=== PATIENT | female | born 1950 | race Caucasian/White ===

== ENCOUNTER 2021-04-07 11:19 | Inpatient (IN) | payer OTHER ==
[~2021-04-07] VITALS: Ht 157.5 cm; Wt 44.9 kg
[2021-04-07 12:04] LABS: BASOPHILS % (AUTO) 0.2 % (0.0-2.0); HEMATOCRIT 39 % (33-45); HEMOGLOBIN 13.7 g/dL (11.5-14.8); LYMPHOCYTES # (AUTO) 2.7 K/uL (0.8-4.8); LYMPHOCYTES % (AUTO) 28.3 % (20.0-44.0); MEAN CORPUSCULAR HGB CONC 35 g/dl (31.0-36.0); MEAN CORPUSCULAR VOLUME 88 fL (82-100); MONOCYTES # (AUTO) 0.8 K/uL (0.1-1.30); MONOCYTES % (AUTO) 8.8 % (2.0-12.0); NEUTROPHILS # (AUTO) 5.9 K/uL (1.8-8.9); NEUTROPHILS % (AUTO) 61.7 % (43.0-81.0); PLATELET COUNT (AUTO) 292 K/uL (150-450); RED BLOOD CELL COUNT(AUTO) 4.47 MIL/uL (4.0-5.2); WHITE BLOOD COUNT (AUTO) 9.5 K/uL (4.3-11.0)
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
--- NOTE | 2021-04-07 12:19 | NUR ---
PT ON BEDPAN
[2021-04-07 12:20] LABS: ACETAMINOPHEN < 10 ug/ml (10-30); ALANINE AMINOTRANSFERASE 44 U/L (12-78); ALBUMIN 3.7 g/dL (3.4-5.0); ALCOHOL, BLOOD < 3 mg/dL (0-0); ALKALINE PHOSPHATASE 62 U/L (46-116); ASPARTATE AMINOTRANSFERASE 31 U/L (15-37); BILIRUBIN,TOTAL 0.7 mg/dL (0.2-1.0); CALCIUM, SERUM 9.1 mg/dL (8.5-10.1); CARBON DIOXIDE 28 mmol/L (21-32); CHLORIDE 110 mmol/L (98-107); CREATININE 0.8 mg/dL (0.6-1.3); GLUCOSE 140 mg/dL (74-106); SODIUM SERUM 150 mmol/L (136-145); TOTAL PROTEIN, SERUM 7.2 g/dL (6.4-8.2); UREA NITROGEN, BLOOD 21 mg/dL (7-18)
--- NOTE | 2021-04-07 12:25 | NUR ---
MADE AWARE OF POTASSIUM 2.8. AWAITIN GFURTHER ORDERED
[2021-04-07] MEDS ORDERED: CLON0.5T4 PO (12:26)
[2021-04-07] MEDS ORDERED: HYDR25TA4 PO (12:26)
[2021-04-07] MEDS ORDERED: MIRT7.5T10 PO (12:26)
[2021-04-07] MEDS ORDERED: HYDR-3976 MT (12:26)
[2021-04-07] MEDS ORDERED: POTASSIUM CL. PREMIX PERIPHER. 200 ML ONE (13:12)
[2021-04-07] MEDS: POTASSIUM CL. PREMIX PERIPHER. 50 ML IV SCH ×4 (13:19→17:24)
--- NOTE | 2021-04-07 13:20 | NUR ---
dR. JUAN NAYAK AT BEDSIDE.
--- NOTE | 2021-04-07 13:22 | NUR ---
IS AWARE OF BP 195/85. NO NEW ORDERS RECIEVED.
[2021-04-07] MEDS ORDERED: ONDANSETRON HCL/PF 4 MG/2 ML VIAL IVP PRN (13:30)
[2021-04-07] MEDS ORDERED: HYDROCODONE/APAP 5/325MG TABLET PO PRN (13:30)
[2021-04-07] MEDS ORDERED: TEMAZEPAM 15 MG CAPSULE PO PRN (13:30)
[2021-04-07] MEDS ORDERED: LORAZEPAM 1 MG TABLET PO PRN (13:30)
[2021-04-07] MEDS ORDERED: MAG HYDROX/AL HYDROX/SIMETH 30 ML UDC PO PRN (13:30)
[2021-04-07] MEDS ORDERED: ACETAMINOPHEN 325 MG TABLET PO PRN (13:30)
[2021-04-07] MEDS ORDERED: Z GUARD REMEDY 2 OZ OINT TP PRN (13:30)
[2021-04-07] MEDS ORDERED: MAGNESIUM HYDROXIDE 30 ML UDC PO PRN (13:30)
[2021-04-07] MEDS ORDERED: IV NS 0.9% 500 ML BAG IV ONE (14:00)
--- NOTE | 2021-04-07 14:13 | NUR ---
DR. JUAN NAYAK MADE AWARE OF BP 192/87. VERBAL ORDER RECEIVED TO GIVE HYDRALAZINE 10MG IV X 1 DOSE ONLY. NOTED AND CARRIED OUT
[2021-04-07] MEDS ORDERED: hydrALAZINE HCL IV 20 MG VIAL ONE (14:15)
--- NOTE | 2021-04-07 14:25 | NUR ---
PT IS STILL UNABLE TO URINATE AT THIS TIME. MD IS MADE AWARE. ORDER FOR FLUID RECEIVED.
[2021-04-07] MEDS ORDERED: hydrALAZINE HCL IV 20 MG VIAL IV ONE (14:30)
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
--- NOTE | 2021-04-07 17:42 | NUR ---
BED 101
--- NOTE | 2021-04-07 17:55 | NUR ---
PT'S BAND SAW MARKER WANT TO SIGN OUT CRATING AND MOVING ESTIMATOR AMA. PT DOES WANT TO STAY IN THE HOSPITAL TO BE TREATED. PT'S BAND SAW MARKER WAS ESCORTED OUT BY SECURITY.
--- NOTE | 2021-04-07 18:36 | NUR ---
REPORT WILL BE RECEIVED AFTER SHIFT.
--- NOTE | 2021-04-07 19:30 | NUR ---
REPORT GIVEN TO JAMIR PAYNE FOR SUYAPA
--- NOTE | 2021-04-07 19:44 | NUR ---
PT TRANSPORTED TO UNIT ON GURPORTER WITH EMT AND RN AR BEDSIDE W/ ACLS PROTOCOL. NAD NOTED DURING TRANSPORT.
[2021-04-07 19:45] VITALS: BP 121/76
--- NOTE | 2021-04-07 19:45 | NUR ---
LIBRARY CIRCULATION CLERKROOFER VINYL COATING NOTE PT TRANSPORTED VIA GURNEY TO UNIT AT THIS TIME. PT ADMITTED TO TELE UNDER JUAN NAYAK SUSTAINABLE DESIGN COORDINATOR FOR ADMITTING DIAGNOSIS OF HYPOKALEMIA AND HYPERNATREMIA. A/O X3, ABLE TO MAKE NEEDS KNOWN. PT IS STABLE ON ROOM AIR. NO SOB OR S/S OF RESPIRATORY DISTRESS NOTED. PT ON EXTERNAL COLLISION WORKER READING SR AT 74 BPM. NO C/O PAIN OR DISCOMFORT AT THIS TIME. IV ACCESS IN RFA #20. PT ORIENTED TO STAFF, ROOM, AND UNIT. SAFETY PRECAUTIONS MAINTAINED. BED IN LOWEST LOCKED POSITION, HOB ELEVATED, SIDE RAILS UP X2. CALL LIGHT AND TABLE WITHIN REACH. WILL CONTINUE TO MONITOR.
[2021-04-07] MEDS: MIRTAZAPINE 15 MG TABLET PO SCH (22:05)
[2021-04-07] MEDS: IV 1/2NS 1000 ML 1,000 ML IV PRN (22:33)
--- NOTE | 2021-04-08 03:00 | NUR ---
RN NOTE AT 0245, BED ALARM FROM ROOM 120 WAS HEARD. ELMER LOPEZ RN AND SHASHI RICKETTS CNA RAN TO FIND PT ON THE FLOOR NEXT TO BED. ASSISTED PT BACK TO BED. NO INJURIES AND NO BLEEDING NOTED. PT ABLE TO MOVE ALL EXTREMITIES WITHOUT ANY PAIN. PT STILL APPEARED AGITATED AND STATED THAT SHE "MISSES HER MOM." EDUCATED PT ON SAFETY AND FALL PRECAUTIONS. INFORMED JONATHAN HELLER DNP AND OBTAINED ORDER FOR BILATERAL SOFT WRIST RESTRAINTS. ORDER READ BACK AND CARRIED OUT.
--- NOTE | 2021-04-08 05:40 | NUR ---
RN NOTE INFORMED JONATHAN HELLER DNP THAT PT IS STILL RESTLESS, ANXIOUS, YELLING AND SCREAMING AT STAFF. RECEIVED ORDER TO ADMINISTER HALDOL 5 MG IM ONE TIME. ORDER READ BACK AND CARRIED OUT. WILL CONTINUE TO MONITOR PT.
--- NOTE | 2021-04-08 06:50 | NUR ---
QUALITY ASSURANCE SUPERVISOR TRIM CLOSING NOTE PT IS AWAKE IN BED. A/O X1, CONFUSED AND AGITATED. PT IS STABLE ON ROOM AIR. NO SOB OR S/S OF RESPIRATORY DISTRESS NOTED. PT ON EXTERNAL BARK PEELER READING SVT AT 150. NO C/O PAIN OR DISCOMFORT AT THIS TIME. IV ACCESS IS INTACT, PATENT, AND FLUSHING WELL. BILATERAL SOFT WRIST RESTRAINTS NOTED FOR PT ATTEMPTING TO GET OUT OF BED. ALL NEEDS HAVE BEEN MET. SAFETY PRECAUTIONS MAINTAINED. BED IN LOWEST LOCKED POSITION, HOB ELEVATED, SIDE RAILS UP X2. CALL LIGHT AND TABLE WITHIN REACH. WILL ENDORSE TO ONCOMING NURSE FOR SUYAPA.
[2021-04-08] MEDS ORDERED: HALOPERIDOL LACTATE INJ 5 MG/ML VIAL IM ONE (07:00)
--- NOTE | 2021-04-08 07:22 | NUR ---
RN NOTES PATIENT RECEIVED IN BED, ALERT AND ORIENTED X1-2. PATIENT ON ROOM AIR, WITH NO SIGNS OF SOB AT THIS TIME, WITH EVEN NON-LABORED BREATHING. BILATERAL SOFT WRIST RESTRAINTS, WITH ADEQUATE SKIN CIRCULATION, AND 2 FINGER BREATHS PRESENT. IV ACCESS INTACT AND PATENT. SKIN WARM AND DRY TO TOUCH. PATIENT DENIES ANY PAIN OR DISCOMFORT AT THIS TIME. SAFETY PRECAUTIONS IMPLEMENTED WITH BED LOCKED, BED ALARM, BILATERAL SIDE RAILS UP, BED IN THE LOWEST POSITION, AND CALL LIGHT WITHIN EASY REACH. WILL CONTINUE TO MONITOR PATIENT.
[2021-04-08 08:00] VITALS: BP 149/69
[2021-04-08] MEDS: ENSURE ENLIVE CHOC 237 ML CAN PO SCH ×2 (08:54→16:31)
[2021-04-08] MEDS: PANTOPRAZOLE 40 MG TABLET.DR PO SCH (08:54)
[2021-04-08 09:58] LABS: BASOPHILS # (AUTO) 0.1 K/uL (0.0-0.2); BASOPHILS % (AUTO) 0.4 % (0.0-2.0); HEMATOCRIT 34 % (33-45); HEMOGLOBIN 11.8 g/dL (11.5-14.8); LYMPHOCYTES # (AUTO) 1.1 K/uL (0.8-4.8); MEAN CORPUSCULAR HGB CONC 35 g/dl (31.0-36.0); MEAN CORPUSCULAR VOLUME 89 fL (82-100); MONOCYTES # (AUTO) 0.8 K/uL (0.1-1.30); MONOCYTES % (AUTO) 4.5 % (2.0-12.0); NEUTROPHILS # (AUTO) 15.6 K/uL (1.8-8.9); NEUTROPHILS % (AUTO) 89.1 % (43.0-81.0); PLATELET COUNT (AUTO) 225 K/uL (150-450); RED BLOOD CELL COUNT(AUTO) 3.83 MIL/uL (4.0-5.2); WHITE BLOOD COUNT (AUTO) 17.6 K/uL (4.3-11.0)
[2021-04-08 10:20] LABS: THYROID STIMULATING HORMONE 0.861 uIU/mL (0.358-3.74)
[2021-04-08 10:27] LABS: CALCIUM, SERUM 8.2 mg/dL (8.5-10.1); CREATININE 0.9 mg/dL (0.6-1.3); MAGNESIUM 1.7 mg/dL (1.8-2.4); PHOSPHORUS 2.6 mg/dL (2.5-4.9)
--- NOTE | 2021-04-08 10:37 | NUR ---
RN NOTES FAXED FACE SHEET TO [facility] FOR CONSULT. WILL CONTINUE TO MONITOR PATIENT.
[2021-04-08 12:00] VITALS: BP 142/88
[2021-04-08] MEDS ORDERED: LORAZEPAM 1 MG TABLET PO PRN (12:00)
[2021-04-08] MEDS: POTASSIUM CHLORIDE 20 MEQ TAB.PRT.SR PO SCH ×2 (12:26→13:48)
[2021-04-08] MEDS: OLANZAPINE 2.5 MG TABLET PO SCH ×2 (12:27→16:30)
[2021-04-08] MEDS: Magnesium 1GM/D5W 100ML PREMIX 100 ML IV SCH ×2 (12:27→13:47)
--- NOTE | 2021-04-08 13:12 | NUR ---
SS consult: SS Consult requested for Hx. of Conservator needed and contact information. Per EMR and previous SS assessment, the pt. is unable to engage in meaningful conversation. Per EMR the pt. was BIB , Tejnider Bush who the pt. has been residing with at [address] [place] [address]. [address] [facility] [id number] for the past 4 weeks. However, no phone number provided. Per facesheet, pt. has a daughter, Luz Elena Robles however, no phone number is available. GINA called the pt.'s nurse, Darcie and discussed above stated information. Darcie stated there are no phone numbers jad for conservator, or daughter. Per Darcie, she will notify SW if any of these parties call for pt and get their contact information. Noted. SW will be available as needed. GINA called the public guardians office [phone] and spoke to the officer of the day, Angelina who stated that this pt. is not showing up on their system. Per Angelina, the pt. may have a private conservator or may be from a different county. GINA will follow up with family when contact information is available.
[2021-04-08 15:41] LABS: COLOR,URINE YELLOW (YELLOW)
[2021-04-08 15:42] LABS: BILIRUBIN,URINE NEGATIVE (NEGATIVE); LEUKOCYTE ESTERASE ,URINE 2+ (NEGATIVE); NITRITE, URINE POSITIVE (NEGATIVE); PROTEIN,URINE NEGATIVE (NEGATIVE); UGLUCOSE NEGATIVE (NEGATIVE); UROBILINOGEN,URINE 0.2 EU/dL (0.2)
[2021-04-08 15:55] LABS: BACTERIA,URINE 3+ /HPF (None Seen); RBC,URINE 51-80 /HPF (0-2); SQUAMOUS EPITHELIAL CELL,UR Few /HPF (None Seen); URINE AMORPHOUS URATE Many /HPF (None Seen); WBC,URINE TOO NUMEROUS TO COUN /HPF (0-3)
[2021-04-08 15:56] LABS: MUCUS,URINE Few /LPF (None Seen)
[2021-04-08 16:00] VITALS: BP 134/50
--- NOTE | 2021-04-08 18:40 | NUR ---
ENAMEL DIPPER NOTES PATIENT IN BED RESTING COMFORTABLY, ALERT AND ORIENTED 1-2. ON ROOM AIR WITH NO RESPIRATORY DISTRESS NOTED AT THIS TIME. PATIENT ON SENIOR NUCLEAR MEDICINE TECHNOLOGIST SR. BILATERAL SOFT WRIST RESTRAINTS IN PLACE WITH Q15 VISUAL CHECKS DONE, WITH ADEQUATE SKIN CIRCULATION. PATIENT DENIES ANY PAIN OR DISCOMFORT. MET ALL OF PATIENT'S NEEDS. SAFETY PRECAUTIONS IMPLEMENTED WITH BED LOCKED, BILATERAL SIDE RAILS UP, BED IN THE LOWEST POSITION, AND CALL LIGHT WITHIN EASY REACH. WILL ENDORSE PLAN OF CARE TO UPCOMING RN.
--- NOTE | 2021-04-08 19:10 | NUR ---
RN NOTE RECEIVE PATIENT IN BED RESTING ALERT ORIENTED X1-2 VERBALLY RESPONSIVE ON ROOM AIR O2:99% IV SITE IS ON RIGHT FOREARM ON IV HYDRATION NS 0.45% 75CC/HR INCONTINENT TO BOWEL/BLADDER SAFETY MEASURE IMPLEMENT BED IN LOW POSITION AND LOCKED BED ALARM IS ON, BILATERAL SOFT RESTRAIN IN PLACE WILL CHECK EVERY 2 HOURS FOR CIRCULATION CONTINUE TO MONITOR.
[2021-04-08 20:00] VITALS: BP 125/65
[2021-04-08] MEDS: MIRTAZAPINE 15 MG TABLET PO SCH (21:48)
[2021-04-09] VITALS: BP 180/129
[2021-04-09] MEDS: CLONIDINE HCL 0.1 MG TABLET PO PRN (01:38)
--- NOTE | 2021-04-09 01:42 | NUR ---
RN NOTE BP 180/[address] CHIN RECEIVED ORDER CLONIDINE 0.1 MG PRN EVERY 6 HOURS IF SBP ABOVE 150 NOTED AND CARRIED OUT.
[2021-04-09] MEDS: IV 1/2NS 1000 ML 1,000 ML IV PRN ×2 (02:18→15:35)
--- NOTE | 2021-04-09 03:00 | NUR ---
RN NOTE BP IS NOW 150/64 CONTINUE TO MONITOR.
--- NOTE | 2021-04-09 03:24 | NUR ---
Rn NOTE RIGHT HAND IV SITE IS INFILTRATED REMOVED AND STARTED A NEW IV LINE ON LEFT WRIST G#22 INTACT PATENT WITH GOOD BLOOD RETURN CONTINUE TO MONITOR.
[2021-04-09 04:00] VITALS: BP 150/64
--- NOTE | 2021-04-09 06:41 | NUR ---
RN NOTE PATIENT REMAINS ON ALERT ORIENTED X1-2 VERBALLY RESPONSIVE ON ROOM AIR O2:98% NO SOB NOT ACUTE DISTRESS NOTED,IV SITE IS ON LEFT WRIST INTACT PATENT ON IV HYDRATION NS 0.45% 75CC/HR ALL DUE MEDS GIVEN KEPT CLEAN AND DRY ALL THE TIME,KEPT COMFORTABLE ALL NEEDS MET ENDORSE NEXT COMING SHIFT FOR CONTINUATION OF CARE.
[2021-04-09 07:19] LABS: BASOPHILS % (AUTO) 0.2 % (0.0-2.0); EOSINOPHILS % (AUTO) 1.4 % (0.0-6.0); HEMATOCRIT 35 % (33-45); HEMOGLOBIN 12.1 g/dL (11.5-14.8); LYMPHOCYTES # (AUTO) 2.7 K/uL (0.8-4.8); LYMPHOCYTES % (AUTO) 21.1 % (20.0-44.0); MEAN CORPUSCULAR HGB CONC 35 g/dl (31.0-36.0); MEAN CORPUSCULAR VOLUME 89 fL (82-100); MONOCYTES # (AUTO) 0.9 K/uL (0.1-1.30); MONOCYTES % (AUTO) 6.8 % (2.0-12.0); NEUTROPHILS # (AUTO) 9.2 K/uL (1.8-8.9); NEUTROPHILS % (AUTO) 70.5 % (43.0-81.0); PLATELET COUNT (AUTO) 219 K/uL (150-450); RED BLOOD CELL COUNT(AUTO) 3.94 MIL/uL (4.0-5.2)
--- NOTE | 2021-04-09 07:25 | NUR ---
LENS CLEANER OPENING NOTE PATIENT ALERT AND ORIENTED X 1 IN BED RESTING COMFORTABLY. PATIENT IS ON ROOM AIR WITH NO SIGNS OF SOB NOTED, WITH EVEN NON-LABORED BREATHING. ON REGIONAL CRA. PATIENT DENIES ANY PAIN OR DISCOMFORT. PATIENT WITH SOFT WRIST RESTRAINTS FOR SAFETY. SAFETY PRECAUTIONS IMPLEMENTED WITH BED LOCKED, BILATERAL SIDE RAILS UP, BED IN THE LOWEST POSITION, AND CALL LIGHT WITHIN EASY REACH. WILL CONTINUE TO MONITOR PATIENT FOR CONTINUITY OF CARE.
[2021-04-09 07:41] LABS: CALCIUM, SERUM 7.7 mg/dL (8.5-10.1); CREATININE 0.6 mg/dL (0.6-1.3)
[2021-04-09 07:52] LABS: POTASSIUM 2.4 mmol/L (3.5-5.1)
[2021-04-09 08:00] VITALS: BP 159/77
[2021-04-09] MEDS: ENSURE ENLIVE CHOC 237 ML CAN PO SCH ×2 (08:00→17:00)
--- NOTE | 2021-04-09 08:15 | NUR ---
RN NOTE RECEIVED A CALL FROM DECEMBER OF LABORATORY REGARDING POTASSIUM RESULT OF 2.4. DR. JUAREZ NOTIFIED WITH NO NEW ORDER AT THIS TIME. NO SIGNS AND SYMPTOMS OF HYPOKALEMIA NOTED AT THIS TIME. WILL CONTINUE TO MONITOR PATIENT.
[2021-04-09] MEDS: OLANZAPINE 2.5 MG TABLET PO SCH ×2 (08:28→18:22)
[2021-04-09] MEDS: PANTOPRAZOLE 40 MG TABLET.DR PO SCH (08:28)
[2021-04-09] MEDS: POTASSIUM CL. PREMIX PERIPHER. 50 ML IV SCH ×6 (09:50→15:58)
--- NOTE | 2021-04-09 11:06 | NUR ---
STONEWORK SUPERVISOR OPENING NOTE PATIENT ALERT AND ORIENTED X 1 IN BED RESTING COMFORTABLY. PATIENT IS ON ROOM AIR WITH NO SIGNS OF SOB NOTED, WITH EVEN NON-LABORED BREATHING. ON GROUNDS MAINTENANCE MANAGER. PATIENT DENIES ANY PAIN OR DISCOMFORT. PATIENT WITH SOFT WRIST RESTRAINTS FOR SAFETY. SAFETY PRECAUTIONS IMPLEMENTED WITH BED LOCKED, BILATERAL SIDE RAILS UP, BED IN THE LOWEST POSITION, AND CALL LIGHT WITHIN EASY REACH. WILL CONTINUE TO MONITOR PATIENT FOR CONTINUITY OF CARE. Addendum: 04/09/21 at 1111 by ADITYA CHERY RN OPENING NOTE - PLS DISREGARD
[2021-04-09 12:00] VITALS: BP 159/77
--- NOTE | 2021-04-09 12:25 | NUR ---
Point of contact pending: GINA called and spoke to the pt.'s nurse, Winifred to discuss if any family has called for his pt. Winifred stated that a neighbor, Annamarie called and stated she would be dropping off the pt.'s cellphone. Winiferd stated he does not have Annamarie's cellphone number but will attempt to gather this information when Annamarie arrives or if she call back. GINA will await for Annamarie's number.
[2021-04-09 16:00] VITALS: BP 136/87
--- NOTE | 2021-04-09 19:00 | NUR ---
INSOLE TACK PULLER HAND CLOSING NOTE PATIENT ALERT AND ORIENTED X 1 IN BED RESTING COMFORTABLY. PATIENT IS ON ROOM AIR WITH NO SIGNS OF SOB NOTED, WITH EVEN NON-LABORED BREATHING. ON TIPPLE TENDER. PATIENT DENIES ANY PAIN OR DISCOMFORT. PATIENT WITH SOFT WRIST RESTRAINTS FOR SAFETY. SAFETY PRECAUTIONS IMPLEMENTED WITH BED LOCKED, BILATERAL SIDE RAILS UP, BED IN THE LOWEST POSITION, AND CALL LIGHT WITHIN EASY REACH. WILL ENDORSE TO NEXT SHIFT FOR CONTINUITY OF CARE.
--- NOTE | 2021-04-09 19:48 | NUR ---
RN OPENING NOTE RECEIVED PT IN BED, ALERT AND ORIENTED X 1, VERY CONFUSED. PATIENT IS ON ROOM AIR WITH NO SOB OR RESP DISTRESS NOTED. ON ADMINISTRATION VICE PRESIDENT SR 80'S. PATIENT DENIES ANY PAIN OR DISCOMFORT. PATIENT WITH BILATERAL SOFT WRIST RESTRAINTS FOR SAFETY R/T REMOVING LINES AND RESTLESSNESS, REMOVED TO ASSESS CIRCULATION, SKIN AND PROVIDE ADL'S. (L) WRIST 22G RUNNING 1/2 NS @ 75ML/HR. SAFETY PRECAUTIONS IMPLEMENTED WITH BED LOCKED, BED ALARM ON, SIDE RAILS UP X3, BED IN THE LOWEST POSITION, AND CALL LIGHT WITHIN EASY REACH. NO ACUTE DISTRESS NOTED AT THIS TIME.
[2021-04-09 20:00] VITALS: BP 159/77
[2021-04-09] MEDS: MIRTAZAPINE 15 MG TABLET PO SCH (22:10)
[2021-04-10] VITALS: BP 163/68
[2021-04-10 04:00] VITALS: BP 168/104
[2021-04-10] MEDS: IV 1/2NS 1000 ML 1,000 ML IV PRN (05:21)
--- NOTE | 2021-04-10 06:42 | NUR ---
RN CLOSING NOTE PT SLEEPING IN BED, ALERT AND ORIENTED X 1, VERY CONFUSED. PATIENT IS ON ROOM AIR WITH NO SOB OR RESP DISTRESS NOTED. ON FOOD CHECKER SR 80'S WITH PVC'S AND BBB. PATIENT DENIES ANY PAIN OR DISCOMFORT. PATIENT WITH BILATERAL SOFT WRIST RESTRAINTS FOR SAFETY R/T REMOVING LINES AND RESTLESSNESS, REMOVED TO ASSESS CIRCULATION, SKIN AND PROVIDE ADL'S PER UNIT PROTOCOL. (L) WRIST 22G RUNNING 1/2 NS @ 75ML/HR. ALL ORDERS FOLLOWED AND IMPLEMENTED THROUGHOUT SHIFT. PT. KEPT CLEAN AND DRY. SAFETY PRECAUTIONS IMPLEMENTED: BED LOCKED, BED ALARM ON, SIDE RAILS UP X3, BED IN THE LOWEST POSITION, AND CALL LIGHT WITHIN EASY REACH. NO ACUTE DISTRESS NOTED AT THIS TIME. WILL ENDORSE CONTINUITY OF CARE TO MORNING SHIFT RN
[2021-04-10 07:23] LABS: BASOPHILS % (AUTO) 0.3 % (0.0-2.0); EOSINOPHILS % (AUTO) 1.4 % (0.0-6.0); HEMATOCRIT 38 % (33-45); HEMOGLOBIN 13.2 g/dL (11.5-14.8); LYMPHOCYTES # (AUTO) 2.7 K/uL (0.8-4.8); LYMPHOCYTES % (AUTO) 24.7 % (20.0-44.0); MEAN CORPUSCULAR HGB CONC 35 g/dl (31.0-36.0); MEAN CORPUSCULAR VOLUME 89 fL (82-100); MONOCYTES # (AUTO) 0.7 K/uL (0.1-1.30); MONOCYTES % (AUTO) 6.5 % (2.0-12.0); NEUTROPHILS # (AUTO) 7.2 K/uL (1.8-8.9); NEUTROPHILS % (AUTO) 67.1 % (43.0-81.0); PLATELET COUNT (AUTO) 204 K/uL (150-450); RED BLOOD CELL COUNT(AUTO) 4.26 MIL/uL (4.0-5.2); WHITE BLOOD COUNT (AUTO) 10.8 K/uL (4.3-11.0)
--- NOTE | 2021-04-10 07:39 | NUR ---
RN OPENING NOTE PT AWAKE IN BED RESTING. A/O X1-2 AND CONFUSED. NO COMPLAINT OF PAIN OR NAUSEA PRESENT. ON RA WITH NO SOB OR RESPIRATORY DISTRESS PRESENT. ON WOOD SCRAP HANDLER. NO EDEMA PRESENT. PT IS ON BEDREST WITH DIAPER PRESENT. SKIN IS INTACT. FALL RISK WITH BED ALARM ON. SKIN IS INTACT. IV PRESENT ON L WRIST 22G AND FLUSHES WELL. 1/2 NS RUNNING AT 75 ML/HR. LABS AND ORDERS REVIEWED. SAFETY MEASURES IN PLACE. SIDE RAILS RAISED. BED LOWERED. CALL LIGHT WITHIN REACH. WILL CONTINUE TO MONITOR.
[2021-04-10 08:00] VITALS: BP 169/90
[2021-04-10 08:21] LABS: CALCIUM, SERUM 8.1 mg/dL (8.5-10.1); CREATININE 0.6 mg/dL (0.6-1.3); MAGNESIUM 1.7 mg/dL (1.8-2.4)
[2021-04-10 08:26] LABS: POTASSIUM 2.7 mmol/L (3.5-5.1)
[2021-04-10] MEDS: OLANZAPINE 2.5 MG TABLET PO SCH ×2 (08:32→17:02)
[2021-04-10] MEDS: ENSURE ENLIVE CHOC 237 ML CAN PO SCH ×3 (08:33→17:03)
[2021-04-10] MEDS: PANTOPRAZOLE 40 MG TABLET.DR PO SCH (08:33)
--- NOTE | 2021-04-10 08:39 | NUR ---
K level 2.7 notified to MIKA Alfaro waiting for returning call back
[2021-04-10] MEDS ORDERED: POTASSIUM CHLORIDE 20 MEQ TAB.PRT.SR PO ONE (09:00)
[2021-04-10] MEDS ORDERED: POTASSIUM CL. PREMIX PERIPHER. 50 ML IV SCH (09:00)
[2021-04-10] MEDS ORDERED: Magnesium 1GM/D5W 100ML PREMIX 100 ML IV SCH (09:00)
[2021-04-10] MEDS: Magnesium 1GM/D5W 100ML PREMIX 100 ML IV SCH ×2 (09:46→12:23)
[2021-04-10] MEDS: POTASSIUM CL. PREMIX PERIPHER. 50 ML IV SCH ×5 (09:46→19:19)
[2021-04-10 12:00] VITALS: BP 167/78
--- NOTE | 2021-04-10 12:45 | NUR ---
SS Note: SW called & spoke to the pt.'s nursePhillip to discuss if neighbor, Annamarie has brought in phone for this patient. Per Nurse, the pt. has not been delivered phone nor do we have the neighbor, Annamarie's number. SW to be informed if any point of contact is known. GINA called the pt.'s 's, Tejinder Bush [[address] [facility] [address]] Anel ribeiro who agreed to provide SW number to Tejinder Bush. GINA will await call back from Tejinder. Anel stated that to her knowledge Tejinder does not have a phone. Noted. GINA did not disclose any information of patient's identity or condition. SW will be available as needed.
[2021-04-10 16:00] VITALS: BP 174/85
[2021-04-10] MEDS: NITROFURANTOIN/NITROFURAN MONOHYDRATE 100 MG CAPSULE PO SCH ×2 (17:02→21:22)
--- NOTE | 2021-04-10 19:38 | NUR ---
RN CLOSING NOTE PT ASLEEP IN BED. AROUSES TO LIGHT TOUCH. A/O X1-2 AND CONFUSED. NO COMPLAINT OF PAIN OR NAUSEA PRESENT. ON RA WITH NO SOB OR RESPIRATORY DISTRESS PRESENT. ON PAINT MAKER. NO EDEMA PRESENT. PT IS ON BEDREST WITH DIAPER PRESENT. SKIN IS INTACT. FALL RISK WITH BED ALARM ON. SKIN IS INTACT. IV PRESENT ON L WRIST 22G AND FLUSHES WELL. 1/2 NS RUNNING AT 75 ML/HR. ROUTINE MEDS GIVEN. LABS AND ORDERS REVIEWED. SAFETY MEASURES IN PLACE. SIDE RAILS RAISED. BED LOWERED. CALL LIGHT WITHIN REACH. REPORT GIVEN TO NIGHT NURSE FOR SUYAPA.
--- NOTE | 2021-04-10 19:48 | NUR ---
RN OPENING NOTE RECEIVED PT IN BED, ALERT AND ORIENTED X 1, VERY CONFUSED WITH DELUSIONS. PATIENT IS ON ROOM AIR WITH NO SOB OR RESP DISTRESS NOTED. ON ADOPTION MANAGER SR 80'S. PATIENT DENIES ANY PAIN OR DISCOMFORT. PATIENT WITH BILATERAL SOFT WRIST RESTRAINTS FOR SAFETY R/T REMOVING LINES AND RESTLESSNESS, REMOVED TO ASSESS CIRCULATION, SKIN AND PROVIDE ADL'S. (L) WRIST 22G RUNNING 1/2 NS @ 75ML/HR. SAFETY PRECAUTIONS IMPLEMENTED WITH BED LOCKED, BED ALARM ON, SIDE RAILS UP X3, BED IN THE LOWEST POSITION, AND CALL LIGHT WITHIN EASY REACH. NO ACUTE DISTRESS NOTED AT THIS TIME.
[2021-04-10 20:00] VITALS: BP 165/82
[2021-04-10] MEDS: MIRTAZAPINE 15 MG TABLET PO SCH (21:23)
[2021-04-11] VITALS: BP 148/107
--- NOTE | 2021-04-11 00:29 | NUR ---
RN NOTE PT. COMPLAINS OF PAIN LEVEL 6/10 POSTERIOR GENERALIZED ACHE. NORCO 5/325 PRN DOSE GIVEN.
[2021-04-11 04:00] VITALS: BP 178/100
[2021-04-11] MEDS: IV 1/2NS 1000 ML 1,000 ML IV PRN (04:16)
--- NOTE | 2021-04-11 04:45 | NUR ---
RN OPENING NOTES RECEIVED PT FROM MARIE VIA BED ACCOMPANIED BY RNORI, FOR CONTINUITY OF CARE. PT A/O X3, WITH CONFUSION, HYPERVERBAL, WITH FLIGHTS OF IDEAS. REORIENTATION PROVIDED. PT DENIES ANY PAIN OR DISCOMFORT AT THIS TIME. IV SITE ON L-WRIST INTACT/PATENT, FLUSHES WELL. PT WITH SOFT RESTRAINTS IN PLACE, ASSESSED AND WITH GOOD CIRCULATION NOTED. WILL CONTINUE FREQUENT VISUAL CHECKS. SAFETY MEASURES IN PLACE, BED IN LOWEST LOCKED POSITION, S/R UP X2, CALL LIGHT WITHIN REACH.
--- NOTE | 2021-04-11 04:49 | NUR ---
RN NOTE PT. TRANSFERRED TO ROOM 307-1 MED SURG 3WEST. PT ON ROOM AIR WITH SATURATIONS ABOVE 98%. ALL PT. BELONGINGS ACCOUNTED FOR. REPORT GIVEN TO AYANNA BOWIE. ENDORSED HIGH BLOOD PRESSURE READING OF 178/100, TAG METER OPERATOR MD AND CHARGE NURSE AWARE. PT TRANSFERRED VIA HOSPITAL BED AND FOLLOWED ACLS PROTOCOL. NO ACUTE DISTRESS NOTED AT THIS TIME.
[2021-04-11] MEDS: CLONIDINE HCL 0.1 MG TABLET PO PRN (05:02)
--- NOTE | 2021-04-11 05:02 | NUR ---
RN NOTE BP 187/106. GIVEN PRN CLONIDINE 0.1MG PO ORDERED. PT DENIES ANY DISCOMFORT, NO ACUTE DISTRESS NOTED.
--- NOTE | 2021-04-11 06:00 | NUR ---
RN NOTE PER DR. DE LA CRUZ, CLONIDINE 0.1 MG Q6H PO PRN TO BE GIVEN FOR SBP >150. AYANNA BOWIE NOTIFIED.
[2021-04-11] MEDS ORDERED: CLONIDINE HCL 0.1 MG TABLET PO PRN (06:30)
--- NOTE | 2021-04-11 06:41 | NUR ---
RN CLOSING NOTES PT RESTING IN BED, AWAKE, RESPONDS APPROPRIATELY BUT WITH EPISODES OF CONFUSION. REORIENTATION PROVIDED. SHE DENIES ANY PAIN OR DISCOMFORT AT THIS TIME. RESPIRATIONS EVEN AND UNLABORED, ON ROOM AIR. SOFT RESTRAINTS CHECKED Q15MIN, WITH GOOD CIRCULATION NOTED. PT IN NO ACUTE DISTRESS. WILL CONTINUE TO MONITOR AND ENDORSE TO NEXT SHIFT NURSE.
--- NOTE | 2021-04-11 07:31 | NUR ---
BREAKFAST HOST OPENING NOTES RECEIVED PATIENT IN BED, AWAKE, A/O X2. PATIENT ON ROOM AIR; BREATHING EVEN AND UNLABORED AT THIS TIME. NO COMPLAINS OF PAIN. TELE MONITOR WITH A CURRENT READING OF NORMAL SR 79 BPM. BILATERAL SOFT WRIST RESTRAINS PRESENT. IV ACCESS ON L WRIST G # 22 PRESENT AND INTACT INFUSING 1/2NS @75 MLS/HR. SAFETY PRECAUTIONS IN PLACE; BED IN LOW POSITION AND LOCKED, RAILS UP X2, CALL LIGHT WITHIN REACH. WILL CONTINUE TO MONITOR PATIENT.
[2021-04-11] MEDS: ENSURE ENLIVE CHOC 237 ML CAN PO SCH ×2 (07:57→16:34)
[2021-04-11 08:00] VITALS: BP 143/79
[2021-04-11] MEDS: PANTOPRAZOLE 40 MG TABLET.DR PO SCH (08:04)
[2021-04-11] MEDS: NITROFURANTOIN/NITROFURAN MONOHYDRATE 100 MG CAPSULE PO SCH ×2 (08:04→21:36)
[2021-04-11] MEDS: OLANZAPINE 2.5 MG TABLET PO SCH ×2 (08:04→17:00)
[2021-04-11 08:17] LABS: BASOPHILS % (AUTO) 0.5 % (0.0-2.0); EOSINOPHILS % (AUTO) 2.3 % (0.0-6.0); HEMATOCRIT 38 % (33-45); HEMOGLOBIN 13.1 g/dL (11.5-14.8); LYMPHOCYTES # (AUTO) 2.1 K/uL (0.8-4.8); LYMPHOCYTES % (AUTO) 29.8 % (20.0-44.0); MEAN CORPUSCULAR HGB CONC 34 g/dl (31.0-36.0); MEAN CORPUSCULAR VOLUME 90 fL (82-100); MONOCYTES # (AUTO) 0.6 K/uL (0.1-1.30); MONOCYTES % (AUTO) 8.5 % (2.0-12.0); NEUTROPHILS # (AUTO) 4.1 K/uL (1.8-8.9); NEUTROPHILS % (AUTO) 58.9 % (43.0-81.0); PLATELET COUNT (AUTO) 224 K/uL (150-450); RED BLOOD CELL COUNT(AUTO) 4.26 MIL/uL (4.0-5.2); WHITE BLOOD COUNT (AUTO) 6.9 K/uL (4.3-11.0)
[2021-04-11 08:52] LABS: CALCIUM, SERUM 8.4 mg/dL (8.5-10.1); CREATININE 0.7 mg/dL (0.6-1.3); MAGNESIUM 2.1 mg/dL (1.8-2.4); POTASSIUM 3.8 mmol/L (3.5-5.1)
[2021-04-11] MEDS: Potassium Chloride 30 MEQ in IV D5W 1,000 ML IV SCH (09:38)
--- NOTE | 2021-04-11 11:09 | NUR ---
Radiology Equipment Servicer note: This CONTENT SPECIALIST spoke with patient's attending physician Howard Alfaro NP, regarding attempts of trying to find a medicare contact specialist/responsible alliance party for the patient. This CONTENT SPECIALIST informed Howard about all efforts made by GINA Sandoval (see previous SS notes dated 04/08, 04/09, 04/10), which have all been unsuccessful at this time. Per GINA Sandoval's notes, Lori has provided her contact information to patient's [facility], , requesting for contact information to be passed on to patient's so patient's can call Lori. No phone call received yet. At this time, it was agreed that discharge plans will proceed based on patient's level of care needs, which is SNF placement.
--- NOTE | 2021-04-11 18:45 | NUR ---
NURSE WOUND CARE CLOSING NOTES PATIENT REMAINS IN BED, AWAKE, A/O X2, DELUSIONAL, TALKING TO SELF. PATIENT ON ROOM AIR; BREATHING EVEN AND UNLABORED AT THIS TIME. NO COMPLAINS OF PAIN DURING THE DAY. TELE MONITOR WITH A CURRENT READING OF NORMAL SR. BILATERAL SOFT WRIST RESTRAINS PRESENT. IV ACCESS ON L WRIST G # 22 PRESENT AND INTACT INFUSING 1/2NS @75 MLS/HR. ALL NEEDS ATTENDED DURING THE DAY. SAFETY PRECAUTIONS IN PLACE; BED IN LOW POSITION AND LOCKED, RAILS UP X2, CALL LIGHT WITHIN REACH. WILL ENDORSE TO TOE FORMER NURSE.
--- NOTE | 2021-04-11 19:54 | NUR ---
SENIOR PORTFOLIO ANALYST OPENING NOTES: RECEIVED PATIENT AWAKE IN BED, BED IN LOW POSITION, CALL LIGHTS WITHIN REACH, NO COMPLAIN OF PAIN AND DISCOMFORT AT THIS TIME, NO SOB NOTED , PATIENT IS ON BED REST A/O X1 WITH EPISODE OF CONFUSION, WITH IV LINE AT L WRIST #22 WITH 1/2 NSS @75ML/ HR INFUSING WELL, PATIENT KEPT CLEAN AND DRY, WILL CONTINUE TO MONITOR.
[2021-04-11 20:00] VITALS: BP 139/76
[2021-04-11] MEDS: MIRTAZAPINE 15 MG TABLET PO SCH (21:36)
[2021-04-12] VITALS: BP 168/85
[2021-04-12] MEDS: CLONIDINE HCL 0.1 MG TABLET PO PRN (00:46)
[2021-04-12] MEDS: Potassium Chloride 30 MEQ in IV D5W 1,000 ML IV SCH (00:52)
[2021-04-12 04:00] VITALS: BP 150/76
--- NOTE | 2021-04-12 06:25 | NUR ---
MS RN CLOSING NOTES: PATIENT SLEEP IN BED COMFORTABLY, AROUSABLE TO STIMULI, BED IN LOW POSITION, CALL LIGHTS WITHIN REACH, NO COMPLAIN OF PAIN AND DISCOMFORT AT THIS TIME, ON TELE MONITORING WITH READING OF SR-81 WITH IV LINE AT RT WRIST WITH POTASSIUM CHLORIDE 30 MEC IN 1OOO ML @75 ML PER HOUR INFUSING WELL, PATIENT KEPT CLEAN AND DRY, ALL NEEDS MET, WILL CONTINUE TO MONITOR.
[2021-04-12] MEDS: PANTOPRAZOLE 40 MG TABLET.DR PO SCH (07:50)
--- NOTE | 2021-04-12 07:54 | NUR ---
TELE/RN OPENING NOTES RECEIVED PATIENT ON BED AWAKE ALERT AND ORIENTED X1. PATIENT IS ON ROOM AIR. PATIENT IN NO APPARENT RESPIRATORY DISTRESS NOTED. NO SIGN AND SYMPTOM OF PAIN NOTED AT THIS TIME. WILL CONTINUE TO MONITOR.
[2021-04-12 08:00] VITALS: BP 142/72
[2021-04-12] MEDS: OLANZAPINE 2.5 MG TABLET PO SCH (09:13)
[2021-04-12] MEDS: NITROFURANTOIN/NITROFURAN MONOHYDRATE 100 MG CAPSULE PO SCH (09:13)
[2021-04-12] MEDS: ENSURE ENLIVE CHOC 237 ML CAN PO SCH (09:25)
[2021-04-12 12:00] VITALS: BP 148/85
--- NOTE | 2021-04-12 15:31 | NUR ---
RN NOTES PATIENT IS AWAKE, ALERT AND ORIENTED X1. PATIENT IS ON ROOM AIR SATURATION 99%. PATIENT IN NO APPARENT RESPIRATORY DISTRESS NOTED. NO SIGN AND SYMPTOM OF PAIN NOTED AT THIS TIME. SEEN AND EXAMINED BY MD WITH ORDERS MADE AND CARRIED OUT. ALL DUE MEDICATIONS WAS GIVEN. REPORT WAS GIVEN TO VANDANA BOWIE AT [facility]. PATIENT LEFT THE HOSPITAL IN MEDICALLY STABLE CONDITION MANUFACTURING TECHNOLOGY ANALYST BY 2 EMT VIA AMBULANCE.
== END 2021-04-12 15:25 | DRG 640 ==
LOC: ER 11:27 → TELE1 17:53 → TELE 04-11 04:44 → MED 04-12 09:12
PROVIDERS: ADMIT Nurse Practitioner Acute Care; ATTEND Nurse Practitioner Family
DX: E87.6 Hypokalemia (principal); G93.41 Metabolic encephalopathy; E43 Unspecified severe protein-calorie malnutrition; D68.59 Other primary thrombophilia; R64 Cachexia; Z68.1 Body mass index [BMI] 19.9 or less, adult; N39.0 Urinary tract infection, site not specified; E86.0 Dehydration; E86.1 Hypovolemia; E87.0 Hyperosmolality and hypernatremia; Z79.899 Other long term (current) drug therapy; Z20.822 Contact with and (suspected) exposure to COVID-19; F32.9 Major depressive disorder, single episode, unspecified; F17.210 Nicotine dependence, cigarettes, uncomplicated; F41.9 Anxiety disorder, unspecified; Z74.09 Other reduced mobility; R79.89 Other specified abnormal findings of blood chemistry; F29 Unspecified psychosis not due to a substance or known physiological condition; F06.8 Other specified mental disorders due to known physiological condition; F25.9 Schizoaffective disorder, unspecified; E83.42 Hypomagnesemia; Z86.12 Personal history of poliomyelitis; Z99.3 Dependence on wheelchair; B95.61 Methicillin susceptible Staphylococcus aureus infection as the cause of diseases classified elsewhere; I10 Essential (primary) hypertension
CPT/HCPCS: 36415; 70450-TC; 71045-TC; 80048-TC; 80053-TC; 80061-TC; 81001; 82533; 83735-TC; 84100-TC; 84244; 84443-TC; 85025-TC; 87081-TC; 87086-TC; 97112-TC; 97530-TC; C9803; G0378; G0480; J0360; J1630; J3475; J3480; J3490; J7040; J7070; U0003